=== PATIENT | female | born 1990 | race Caucasian/White ===

== ENCOUNTER 2022-05-15 20:57 | Observation (INO) | payer OTHER ==
--- NOTE | 2022-05-15 22:26 | RAD REPORT ---
EXAM DESCRIPTION: RAD - Chest Single View - 05/15/2022 10:19 pm CLINICAL HISTORY: SOB Chest pain. COMPARISON: No comparisons FINDINGS: Portable technique limits examination quality. Mild bilateral pulmonary opacities are present which may represent pulmonary edema or a viral infecti on. The heart is mildly prominent. No displaced fractures.
[2022-05-15 22:28] LABS: Absolute Lymphocytes (CBC) 1.9 K/uL (0.7-4.9); Hematocrit 39.2 % (36.0-45.0); Lymphocytes % 20.2 % (15.3-44.8); MCV 80.7 fL (80-100); MPV 7.9 fL (7.6-11.3); RBC Red Blood Cell Count 4.85 M/uL (3.86-4.86)
--- NOTE | 2022-05-15 22:28 | RAD REPORT ---
EXAM DESCRIPTION: CT - Head Brain Wo Cont - 05/15/2022 10:23 pm CLINICAL HISTORY: htn Headache, drowsiness, hypertension COMPARISON: No comparisons TECHNIQUE: All CT scans are performed using dose optimization technique as appropriate and may inclu de automated exposure control or mA/KV adjustment according to patient size. FINDINGS: No intracranial hemorrhage, hydrocephalus or extra-axial fluid collection.No areas of brai n edema or evidence of midline shift. The paranasal sinuses and mastoids are clear. The calvarium is intact. IMPRESSION: No acute intracranial abnormality.
[2022-05-15 22:29] LABS: Protime INR 1.04
[2022-05-15] MEDS ORDERED: NA CHLORIDE 0.9% 1,000 ML ONE (22:51)
[2022-05-15] MEDS ORDERED: NITROGLYCERIN 1 GM PKT TD ONE (22:51)
[2022-05-15] MEDS ORDERED: NITROGLYCERIN 0.4 MG/TAB SL ONE (22:51)
[2022-05-15 22:57] LABS: Magnesium 2.2 mg/dL (1.8-2.4); Troponin High Sensitivity 10.4 pg/mL (<58.9)
[2022-05-15] MEDS ORDERED: DIPHENHYDRAMINE 50 MG/ML VIAL ONE (22:59)
[2022-05-16] MEDS ORDERED: DOXAZOSIN 2 MG TAB ONE (00:17)
[2022-05-16] MEDS ORDERED: METOPROLOL TARTRATE 5 MG/5 ML INJ IV ONE (01:53)
[2022-05-16 01:59] LABS: Urine Blood 1+ (Negative); Urine Glucose Negative (Negative); Urine Protein Trace (Negative); Urine Specific Gravity 1.015 (1.005-1.030); Urine pH 5.5 (5.0-7.0)
[2022-05-16] MEDS ORDERED: METOPROLOL TAR 50 MG TAB ONE ×2 (02:01→07:45)
[2022-05-16] MEDS ORDERED: ASPIRIN 325 MG TAB ONE (02:01)
[2022-05-16 02:07] LABS: Urine Specific Gravity/Preg 1.015 (1.005-1.030)
[2022-05-16 02:33] LABS: Barbiturates NEGATIVE (NEGATIVE); Benzodiazepines NEGATIVE (NEGATIVE); Cocaine NEGATIVE (NEGATIVE); METHAMPHETAM NEGATIVE (NEGATIVE); Methadone NEGATIVE (NEGATIVE); Opiates NEGATIVE (NEGATIVE); Phencyclidine NEGATIVE (NEGATIVE); THC Cannibis NEGATIVE (NEGATIVE)
--- NOTE | 2022-05-16 03:17 | EDPHYS ---
Physician Documentation [facility] Name: Angeles Valencia Age: 31 yrs Sex: Female : 1990 Arrival Date: 05/15/2022 Time: 20:59 Bed 6 Private MD: ROSALES Physician Nimesh Boles HPI: 05/15 22:05 This 31 yrs old Female presents to ER via Ambulatory with complaints of High Blood cp Pressure. 22:05 The patient has elevated blood pressure and discovered this at home, with a home device.cp 22:05 Associated signs and symptoms: Pertinent positives: chest pain, headache, shortness of cp breath. Severity of symptoms: in the emergency department the blood pressure is unchanged. Patient reports history of htn. Has been off blood pressure medication for past 3 months. Has been on amlodipine in the past but had anaphylactic reaction. Reports allergic reaction to Lisinopril medication, diuretic blood pressure medication, anaphylactic reaction to clonidine and allergy to hydralazine. Patient reports beta cass medication caused psoriasis to worsen with pustules forming after taking medication over time. Historical: - Allergies: 21:32 PENICILLINS; hb 21:32 Bactrim; hb 21:32 Beta-Blockers (Beta-Adrenergic Blocking Agts); hb 21:32 amlodipine; hb 21:32 proparacaine; hb 21:32 IV Contrast; hb 21:32 HC2 Inhibitors; hb 21:32 Doxycycline; hb 21:32 Proton Pump Inhibitors; hb 21:32 Cipro; hb 21:32 Janumet; hb 21:32 metformin; hb 21:32 Hydrochlorothiazide; hb 21:32 Cyclosporine; hb 21:32 Celexa; hb 21:32 Cymbalta; hb 21:32 Geodon; hb 21:32 lithium carbonate; hb 21:32 Losartan; hb 21:32 Zofran; hb 21:32 Cosentyx; hb 21:32 Tremfya; hb 21:32 Morphine; hb 21:32 Fentanyl; hb 21:32 Breo Ellipta; hb 21:32 Latex, Natural Rubber; hb 21:32 spironolactone; hb 21:32 ALEJANDRO 28; hb 21:32 Gildess; hb - Immunization history:: Adult Immunizations up to date. - Social history:: Smoking status: Patient denies any tobacco usage or history of. ROS: 22:10 Constitutional: Negative for body aches, chills, fever, poor PO intake. cp 22:10 Eyes: Negative for injury, pain, redness, and discharge. cp 22:10 Cardiovascular: Positive for chest pain, palpitations. cp 22:10 Respiratory: Positive for shortness of breath, Negative for cough, wheezing. cp 22:10 Abdomen/GI: Negative for abdominal pain, vomiting, diarrhea, constipation. 22:10 Back: Negative for pain at rest, pain with movement. 22:10 : Negative for urinary symptoms. Exam: 22:05 ECG was reviewed by the Attending Physician. cp 22:12 Constitutional: The patient appears in no acute distress, alert, awake, cp non-diaphoretic, non-toxic, well developed, well nourished, obese, uncomfortable. 22:12 Head/Face: Normocephalic, atraumatic. cp 22:12 Eyes: Periorbital structures: appear normal, Pupils: equal, round, and reactive to light and accomodation, Extraocular movements: intact throughout, Conjunctiva: normal, no exudate, no injection, Sclera: no appreciated abnormality, Lids and lashes: appear normal, bilaterally. 22:12 ENT: External ear(s): are unremarkable, Nose: is normal, Mouth: Lips: moist, Oral mucosa: moist, Posterior pharynx: Airway: no evidence of obstruction, patent. 22:12 Neck: ROM/movement: is normal, is supple, without pain, no range of motions limitations, no nuchal rigidity. 22:12 Chest/axilla: Inspection: normal. 22:12 Cardiovascular: Rate: tachycardic, Rhythm: regular, Edema: is not appreciated, JVD: is not appreciated. 22:12 Respiratory: the patient does not display signs of respiratory distress, Respirations: normal, no use of accessory muscles, no retractions, labored breathing, is not present, Breath sounds: are clear throughout, no decreased breath sounds, no stridor, no wheezing. 22:12 Abdomen/GI: Inspection: obese Bowel sounds: active, all quadrants, Palpation: abdomen is soft and non-tender, in all quadrants. 22:12 Back: pain, is absent, ROM is normal. 22:12 Skin: consistent with psoriasis, on the left lower leg. 22:12 Neuro: Orientation: to person, place \T\ time. Mentation: is normal, Cerebellar function: is grossly normal, Motor: moves all fours, strength is normal, Sensation: is normal. 05/16 01:37 ECG was reviewed by the Attending Physician. Vital Signs: 05/15 21:31 BP 213 / 109; Pulse 129; Resp 20; Temp 98.3; Pulse Ox 97% on R/A; Weight 102.06 kg; hb Height 5 ft. 5 in. (165.10 cm); Pain 2/10; 22:57 BP 193 / 120; Pulse 120; Resp 21; Pulse Ox 99% on R/A; jb4 05/16 00:36 BP 180 / 108; Pulse 135; Resp 28; Pulse Ox 98% on R/A; jb4 01:30 BP 177 / 96; Pulse 150; Resp 18; Pulse Ox 98% on R/A; jb4 02:30 BP 138 / 89; Pulse 105; Resp 14; Pulse Ox 96% on R/A; jb4 03:30 BP 147 / 92; Pulse 98; Resp 16; Pulse Ox 96% on R/A; 4 05/15 21:31 Body Mass Index 37.44 (102.06 kg, 165.10 cm) hb 01:30 Provider notified of Heart rate, see MAR for orders. [facility] MDM: 05/15 21:53 Patient medically screened. [facility] 05/16 03:15 Data reviewed: vital signs, nurses notes, lab test result(s), EKG, radiologic studies, cp CT scan, plain films, I have discussed the patient's presentation/case with the attending Emergency Department Physician;. 03:15 Test interpretation: by ED physician or midlevel provider: ECG, plain radiologic cp studies. Response to treatment: the patient's symptoms have markedly improved after treatment. Physician consultation: Padilla Gupta was contacted at 03:10, regarding admission, to the telemetry unit. patient's condition, and will see patient in ED, shortly. 05/15 22:00 Order name: Basic Metabolic Panel; Complete Time: 23:00 05/15 23:00 Interpretation: Normal except: GLUC 114. 05/15 22:00 Order name: CBC with Diff; Complete Time: 23:00 05/16 02:49 Interpretation: Reviewed. 05/15 22:00 Order name: Magnesium; Complete Time: 23:00 05/15 22:00 Order name: NT PRO-BNP; Complete Time: 23:00 cp 05/16 02:50 Interpretation: NT PRO-BNP 27; Reviewed. cp 05/15 22:00 Order name: PT-INR; Complete Time: 23:00 cp 05/15 22:00 Order name: Troponin HS; Complete Time: 23:00 cp 05/16 02:49 Interpretation: Troponin HS 10.4; Reviewed. cp 05/16 01:16 Order name: UDS; Complete Time: 02:48 la1 05/16 02:49 Interpretation: Reviewed. cp 05/16 01:19 Order name: TSH cp 05/16 01:19 Order name: T3 Free cp 05/16 01:21 Order name: T4 Free la1 05/16 01:59 Order name: Urine Dipstick-Ancillary; Complete Time: 02:48 EDMS 05/16 02:48 Interpretation: Normal except: UBLD 1+; UPROT Trace; UESTR 1+. cp 05/16 02:01 Order name: Urine --Ancillary (enter results); Complete Time: 02:48 05/16 02:49 Interpretation: Reviewed. cp 05/16 03:11 Order name: Troponin HS cp 05/16 07:07 Order name: CBC with Automated Diff EDMS 05/15 22:00 Order name: XRAY Chest (1 view); Complete Time: 23:00 cp 05/15 22:02 Order name: CT Head Brain wo Cont; Complete Time: 23:00 cp 05/16 07:22 Order name: SARS RAPID eb 05/16 07:31 Order name: Comprehensive Metabolic Panel EDMS 05/16 07:31 Order name: Lipid Profile EDMS 05/16 07:31 Order name: Magnesium EDMS 05/16 10:18 Order name: SARS-COV-2 Antigen Rapid EDMS 05/16 14:17 Order name: Troponin High Sensitivity EDMS 05/15 22:00 Order name: EKG; Complete Time: 22:02 cp 05/15 22:00 Order name: Cardiac monitoring; Complete Time: 22:07 cp 05/15 22:00 Order name: EKG - Nurse/Tech; Complete Time: 22:07 cp 05/15 22:00 Order name: IV Saline Lock; Complete Time: 22:20 cp 05/15 22:00 Order name: Labs collected and sent; Complete Time: 22:20 cp 05/15 22:00 Order name: O2 Per Protocol; Complete Time: 22:07 cp 05/15 22:00 Order name: O2 Sat Monitoring; Complete Time: 22:07 cp 05/15 22:16 Order name: Urine Dipstick-Ancillary (obtain specimen); Complete Time: 02:05 cp 05/15 22:16 Order name: Urine Test (obtain specimen); Complete Time: 02:05 cp 05/16 01:20 Order name: EKG; Complete Time: 01:21 cp 05/16 01:20 Order name: EKG - Nurse/Tech; Complete Time: 01:39 cp EC/01 22:05 Rate is 109 beats/min. Rhythm is regular. AK interval is normal. QRS interval is cp normal. QT interval is normal. T waves are Inverted in leads III, aVR. Interpreted by me. Reviewed by me. 05/16 01:37 Rate is 140 beats/min. Rhythm is regular. AK interval is normal. QRS interval is cp normal. QT interval is normal. T waves are Inverted. Interpreted by me. Reviewed by me. Administered Medications: 05/15 22:45 Drug: NS 0.9% 1000 ml Route: IV; Rate: 1 bolus; Site: right antecubital; [facility] 05/16 00:00 Follow up: Response: No adverse reaction; IV Status: Completed infusion; IV Intake: jb4 1000ml 05/15 22:45 Drug: Nitro-Bid (nitroglycerin) Ointment 2 % 0.5 inches Route: Transdermal; Site: [facility] anterior chest wall; 22:45 Follow up: Response: Adverse reaction, Physician notified; see chart jb4 22:45 Drug: Nitroglycerin 0.4 mg Route: Sublingual; jb4 22:45 Follow up: Response: Adverse reaction, Physician notified; see chart jb4 22:50 Drug: Benadryl (diphenhydrAMINE) 50 mg Route: IVP; Site: right antecubital; jb4 23:15 Follow up: Response: No adverse reaction; Marked relief of symptoms jb4 23:52 Not Given (not availablee): Methyldopa 500 mg PO once 05/16 00:36 Drug: Doxazosin 4 mg Route: PO; 4 01:15 Follow up: Response: No adverse reaction; Marked relief of symptoms jb4 01:45 Drug: Lopressor (metoprolol) 5 mg Route: IVP; Site: right antecubital; jb4 02:15 Follow up: Response: No adverse reaction; Marked relief of symptoms jb4 02:04 Drug: Metoprolol TARTRATE 50 mg Route: PO; jb4 02:30 Follow up: Response: No adverse reaction; Marked relief of symptoms jb4 02:04 Drug: Aspirin 325 mg Route: PO; jb4 02:30 Follow up: Response: No adverse reaction jb4 Disposition Summary: 05/16/22 03:16 Hospitalization Ordered Hospitalization Status: Observation cp Provider: Jonah López cp Condition: Stable cp Problem: new cp Symptoms: have improved cp Bed/Room Type: Standard cp Location: [facility] ER HOLD(05/16/22 04:14) cg Room Assignment: ERHOLD-(05/16/22 04:14) cg Diagnosis - Chest pain, unspecified cp - Hypertensive urgency cp Forms: - Medication Reconciliation Form cp - SBAR form cp Signatures: Dispatcher [employer] EDNimesh Knight MD MD cha Page, Corey, PA PA cp Scarlet Donahue, RN RN Lupe Traylor RN RN Mitchell Mercado RN RN jb4 Corrections: (The following items were deleted from the chart) 05/15 21:38 21:32 PMHx: Hypothyroidism; hb hb 05/16 04:14 03:16 Telemetry/MedSurg (observation) cp cg 04:14 03:16 cp cg
--- NOTE | 2022-05-16 03:17 | ER ---
Nurse's Notes [facility] Name: Angeles Valencia Age: 31 yrs Sex: Female : 1990 Arrival Date: 05/15/2022 Time: 20:59 Bed 6 Private MD: Diagnosis: Chest pain, unspecified;Hypertensive urgency Presentation: 05/15 21:31 Chief complaint: Left sided chest tightness, SOB, and high home BP today. Hx of HTN but hb not medicated. Coronavirus screen: Client presents with at least one sign or symptom that may indicate coronavirus-19. Standard/surgical mask placed on the client. Ebola Screen: No symptoms or risks identified at this time. Risk Assessment: Do you want to hurt yourself or someone else? Patient reports no desire to harm self or others. Onset of symptoms was May 15, 2022. 21:31 Method Of Arrival: Ambulatory hb 21:31 Acuity: KATE 2 hb Historical: - Allergies: 21:32 PENICILLINS; hb 21:32 Bactrim; hb 21:32 Beta-Blockers (Beta-Adrenergic Blocking Agts); hb 21:32 amlodipine; hb 21:32 proparacaine; hb 21:32 IV Contrast; hb 21:32 HC2 Inhibitors; hb 21:32 Doxycycline; hb 21:32 Proton Pump Inhibitors; hb 21:32 Cipro; hb 21:32 Janumet; hb 21:32 metformin; hb 21:32 Hydrochlorothiazide; hb 21:32 Cyclosporine; hb 21:32 Celexa; hb 21:32 Cymbalta; hb 21:32 Geodon; hb 21:32 lithium carbonate; hb 21:32 Losartan; hb 21:32 Zofran; hb 21:32 Cosentyx; hb 21:32 Tremfya; hb 21:32 Morphine; hb 21:32 Fentanyl; hb 21:32 Breo Ellipta; hb 21:32 Latex, Natural Rubber; hb 21:32 spironolactone; hb 21:32 ALEJANDRO 28; hb 21:32 Gildess; hb - Immunization history:: Adult Immunizations up to date. - Social history:: Smoking status: Patient denies any tobacco usage or history of. Screenin:45 Abuse screen: Denies threats or abuse. Nutritional screening: No deficits noted. jb4 Tuberculosis screening: No symptoms or risk factors identified. Fall Risk None identified. Assessment: 21:45 General: Appears in no apparent distress. uncomfortable, Behavior is calm, cooperative, jb4 appropriate for age. Pain: Complains of pain in chest Pain does not radiate. Pain currently is 2 out of 10 on a pain scale. Neuro: Level of Consciousness is awake, alert, obeys commands, Oriented to person, place, time, situation. Cardiovascular: Patient's skin is warm and dry. Respiratory: Airway is patent Respiratory effort is even, unlabored, Respiratory pattern is regular, symmetrical, Breath sounds are clear bilaterally. GI: No signs and/or symptoms were reported involving the gastrointestinal system. : No signs and/or symptoms were reported regarding the genitourinary system. EENT: No signs and/or symptoms were reported regarding the EENT system. Derm: Skin is intact, Skin is pink, warm \\T\\ dry. Musculoskeletal: Circulation, motion, and sensation intact. Range of motion: intact in all extremities. 22:37 Reassessment: Pt reports having a history of Mitral valve prolapse, and voiced concern jb4 for taking Nitro. Provider notified, informed this nurse that nitro is safe to give and to still give 1L bolus of NS. Pt notified. 22:45 Reassessment: Pt given sublingual nitro and transdermal. Within approximately 30seconds jb4 pt reports that her mouth was burning and tingling but the transdermal had no adverse effect, immediatley after pt began to report severe headache, chest, abdomen, and body cramping. Pt spit out remaining oral nitro and transdermal was removed, provider notified and at the bedside. Received verbal order to give 50mg of Benadryl IV. 05/16 00:00 Reassessment: Patient appears in no apparent distress at this time. Patient and/or jb4 family updated on plan of care and expected duration. Pain level reassessed. Patient is alert, oriented x 3, equal unlabored respirations, skin warm/dry/pink. Patient states feeling better. Patient states symptoms have improved. 01:30 Reassessment: Patient appears in no apparent distress at this time. Patient and/or jb4 family updated on plan of care and expected duration. Pain level reassessed. Patient is alert, oriented x 3, equal unlabored respirations, skin warm/dry/pink. 01:40 Reassessment: Informed pt that provider would like to use Metoprolol to treat her jb4 tachycardia. Informed pt Metoprolol is a beta cass. Pt states " I have never had Metoprolol before, and the other incidents were years ago. I want to take it. 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 03:16 Reassessment: Patient appears in no apparent distress at this time. Patient and/or jb4 family updated on plan of care and expected duration. Pain level reassessed. Patient is alert, oriented x 3, equal unlabored respirations, skin warm/dry/pink. Pt is resting comfortably in bed with family at the bedside. reports feeling much better. Patient states feeling better. Patient states symptoms have improved. Vital Signs: 05/15 21:31 BP 213 / 109; Pulse 129; Resp 20; Temp 98.3; Pulse Ox 97% on R/A; Weight 102.06 kg; hb Height 5 ft. 5 in. (165.10 cm); Pain 2/10; 22:57 BP 193 / 120; Pulse 120; Resp 21; Pulse Ox 99% on R/A; jb4 05/16 00:36 BP 180 / 108; Pulse 135; Resp 28; Pulse Ox 98% on R/A; jb4 01:30 BP 177 / 96; Pulse 150; Resp 18; Pulse Ox 98% on R/A; jb4 02:30 BP 138 / 89; Pulse 105; Resp 14; Pulse Ox 96% on R/A; jb4 03:30 BP 147 / 92; Pulse 98; Resp 16; Pulse Ox 96% on R/A; jb4 05/15 21:31 Body Mass Index 37.44 (102.06 kg, 165.10 cm) hb 01:30 Provider notified of Heart rate, see MAR for orders. jb4 ED Course: 05/15 20:59 Patient arrived in ED. ja2 21:32 Triage completed. hb 21:41 Mitchell Mercado, RN is Primary Nurse. jb4 21:45 Patient has correct armband on for positive identification. Placed in gown. Bed in low jb4 position. Call light in reach. Side rails up X 1. Client placed on continuous cardiac and pulse oximetry monitoring. NIBP monitoring applied. it compliance manager on. 21:53 Nimesh Garcia PA is PHCP. cp 21:53 Nimesh Boles MD is Attending Physician. cp 22:00 Inserted saline lock: 18 gauge in right antecubital area, using aseptic technique. jb4 Blood collected. 22:20 Troponin HS Sent. jb4 22:20 NT PRO-BNP Sent. jb4 22:20 Magnesium Sent. jb4 22:20 CBC with Diff Sent. jb4 22:20 Basic Metabolic Panel Sent. jb4 22:21 XRAY Chest (1 view) In Process Unspecified. EDMS 22:24 CT Head Brain wo Cont In Process Unspecified. EDMS 05/16 03:12 Jonah López MD is Hospitalizing Provider. cp 03:15 No provider procedures requiring assistance completed. jb4 03:15 Patient admitted, IV remains in place. jb4 Administered Medications: 05/15 22:45 Drug: NS 0.9% 1000 ml Route: IV; Rate: 1 bolus; Site: right antecubital; jb4 05/16 00:00 Follow up: Response: No adverse reaction; IV Status: Completed infusion; IV Intake: jb4 1000ml 05/15 22:45 Drug: Nitro-Bid (nitroglycerin) Ointment 2 % 0.5 inches Route: Transdermal; Site: [facility] anterior chest wall; 22:45 Follow up: Response: Adverse reaction, Physician notified; see chart jb4 22:45 Drug: Nitroglycerin 0.4 mg Route: Sublingual; jb4 22:45 Follow up: Response: Adverse reaction, Physician notified; see chart jb4 22:50 Drug: Benadryl (diphenhydrAMINE) 50 mg Route: IVP; Site: right antecubital; jb4 23:15 Follow up: Response: No adverse reaction; Marked relief of symptoms jb4 23:52 Not Given (not availablee): Methyldopa 500 mg PO once 05/16 00:36 Drug: Doxazosin 4 mg Route: PO; jb4 01:15 Follow up: Response: No adverse reaction; Marked relief of symptoms jb4 01:45 Drug: Lopressor (metoprolol) 5 mg Route: IVP; Site: right antecubital; jb4 02:15 Follow up: Response: No adverse reaction; Marked relief of symptoms jb4 02:04 Drug: Metoprolol TARTRATE 50 mg Route: PO; jb4 02:30 Follow up: Response: No adverse reaction; Marked relief of symptoms jb4 02:04 Drug: Aspirin 325 mg Route: PO; jb4 02:30 Follow up: Response: No adverse reaction jb4 Medication: 03:15 VIS not applicable for this client. jb4 Intake: 00:00 IV: 1000ml; Total: 1000ml. jb4 Outcome: 03:16 Decision to Hospitalize by Provider. cp 03:30 Admitted to ER Hold. Please see [facility] for further documentation. jb4 03:30 Condition: stable 03:30 Discharge instructions given to patient, Instructed on the need for admit, Demonstrated understanding of instructions. 15:49 Patient left the ED. ll1 Signatures: Dispatcher [employer] EDMS Nimesh Garcia PA PA cp Lupe Traylor RN RN Mitchell Mercado RN RN jb4 Toribio Pop RN RN ll1 Anabel Serna Corrections: (The following items were deleted from the chart) 05/15 21:38 21:32 PMHx: Hypothyroidism; hb hb 22:57 22:37 Reassessment: Pt reports having a history of Mitral valve prolapse, and voiced jb4 concern for taking Nitro. Provider notified, informed this nurse that nitro is safe to give and to still give 1L bolus of NS. jb4 05/16 03:43 02:30 BP 182 / 92; Pulse 66bpm; Resp 16bpm; Pulse Ox 97% RA; jb4 4 03:43 03:30 BP 171 / 88; Pulse 68bpm; Resp 12bpm; Pulse Ox 95% RA; jb4 jb4 06:52 02:00 Reassessment: Informed pt that provider would like to use Metoprolol to treat her jb4 tachycardia. Informed pt Metoprolol is a beta cass. Pt states " I have never had Metoprolol before, and the other incidents were years ago. I want to take it. 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 jb4
[2022-05-16 03:36] LABS: T3 Free 3.16 pg/mL (2.18-3.98); Thyroid Stimulating Hormone 0.81 uIU/mL (0.360-3.740)
--- NOTE | 2022-05-16 03:41 | P.HP ---
Certification for Inpatient Patient admitted to: Observation With expected LOS: <2 Midnights Patient will require the following post-hospital care: None Practitioner: I am a practitioner with admitting privileges, knowledge of patient current condition, hospital course, and medical plan of care. Services: Services provided to patient in accordance with Admission requirements found in Title 42 Section 412.3 of the Code of Federal Regulations <Padilla Gupta - Last Filed: 05/16/22 03:35> Patient History Date of Service: 05/16/22 Primary Care Provider: [facility] Reason for admission: Hypertensive urgency, chest pain History of Present Illness: 31-year-old female with history of psoriasis/psoriatic arthritis, MVP, PCOS, hypertension presents emergency department for high blood pressure. She reports that she was taken off her amlodipine few weeks ago by her PCP she was having swelling of her tongue in her lower extremities and due to all of her allergies they were unable to select another medication to put her on she supposed to follow-up with a compound coating machine offbearer but not until later this month. Upon arrival to the emergency department patient's blood pressure was elevated around 213/109 heart rate was around 130 she was also having some chest pressure during her ED stay, she was eventually treated with metoprolol as she stated is an allergy but she reports that it causes worsening of her psoriasis. Currently treated for swelling to metoprolol currently heart rate 98 blood pressure 147/92 thyroid panel is pending patient does have history of hypothyroidism. ED provider wishes to admit under observation for hypertensive urgency, chest pain. - Past Medical/Surgical History -: PCOS -: Psoriasis/psoriatic arthritis -: Hypertension -: Hypothyroidism -: MVP -: Psychosocial/ Personal History: Patient lives at home with her and child - Family History Mother -: Hypertension, Diabetes Father Notes: psoriasis Sister -: Diabetes - Social History Smoking Status: Never smoker Alcohol use: No CD- Drugs: No Caffeine use: Yes Place of Residence: Home <Padilla Gupta - Last Filed: 05/16/22 03:35> Date of Service: 05/17/22 <Edward Jacobs - Last Filed: 05/17/22 07:45> Review of Systems 10-point ROS is otherwise unremarkable Respiratory: Shortness of Breath Cardiovascular: Chest Pain, Palpitations <Padilla Gupta - Last Filed: 05/16/22 03:35> Physical Examination - Physical Exam General: Alert, In no apparent distress, Oriented x3 HEENT: Atraumatic, PERRLA, Mucous membr. moist/pink, EOMI, Sclerae nonicteric Neck: Supple, 2+ carotid pulse no bruit, No LAD, Without JVD or thyroid abnormality Respiratory: Clear to auscultation bilaterally, Normal air movement Cardiovascular: Regular rate/rhythm, Normal S1 S2 Capillary refill: <2 Seconds Gastrointestinal: Normal bowel sounds, No tenderness Musculoskeletal: No tenderness Integumentary: No rashes Neurological: Normal speech, Normal strength at 5/5 x4 extr, Normal tone, Normal affect - Studies Laboratory Data (last 24 hrs) 05/15/22 22:10: PT 11.5, INR 1.04 05/15/22 22:10: WBC 9.50, Hgb 13.2, Hct 39.2, Plt Count 294 05/15/22 22:10: Sodium 136, Potassium 4.0, BUN 7, Creatinine 0.64, Glucose 114 H, Magnesium 2.2 <Padilla Gupta - Last Filed: 05/16/22 03:35> Assessment and Plan - Plan Assessment: Chest pain Hypertensive urgency Hx of MVP Hypothyroidism PCOS Psoriasis/Psoriatic arthritis Plan: Chest pain: Monitor on telemetry, trend troponins, cardiology consult in place and echocardiogram ordered. Patient with history of mitral valve prolapse was experiencing tachycardia and hypertension as well during her ED stay. Initiated therapy with beta-cass, aspirin patient with multiple drug allergies/adverse reactions. Appreciate further input from cardiology. Hypertensive urgency: Continue metoprolol, cardiology consult in place and echocardiogram ordered. Patient has been on 14th of blood pressure medications reportedly with varying adverse reactions and allergic reactions, she reports that metoprolol can make her psoriasis worse this was the medication that was given to her in the emergency department which seems to work at this time. We will continue his medication for the time being await further evaluation from cardiology. Hx of MVP: Continue as above, echocardiogram ordered. Hypothyroidism: Thyroid panel ordered and pending. Continue home medications once verified. PCOS: Stable continue home meds Psoriasis/Psoriatic arthritis:Stable continue home meds DVT PPX: lovenox Code status:Full Discharge Plan: Home Plan to discharge in: 24 Hours - Advance Directives Does patient have a Living Will: No Does patient have a Durable POA for Healthcare: No - Code Status/Comfort Care Code Status Assessed: Yes (Full code) Critical Care: No Time Spent Managing Pts Care (In Minutes): 55 <Padilla Gupta - Last Filed: 05/16/22 03:35> Physician Review: Patient Assessed, Agree with Above Assessment and Plan <Edward Jacobs - Last Filed: 05/17/22 07:45>
[2022-05-16] MEDS ORDERED: ACETAMINOPHEN 500 MG TAB PO PRN (05:48)
[2022-05-16] MEDS ORDERED: ONDANSETRON 4 MG/2 ML VIAL IV PRN (05:48)
[2022-05-16 05:53] VITALS: BMI 37.4
[2022-05-16 06:52] LABS: Absolute Lymphocytes (CBC) 2.6 K/uL (0.7-4.9); Lymphocytes % 30.6 % (15.3-44.8); MCV 80.7 fL (80-100); MPV 7.8 fL (7.6-11.3); RBC Red Blood Cell Count 4.46 M/uL (3.86-4.86)
--- NOTE | 2022-05-16 07:18 | EKG ---
Test Date: 2022-05-16 Test Time: 01:31:47 Measuring Clerk: CORRINA MEASUREMENT RESULTS: Intervals: Rate: 140 FL: 124 QRSD: 88 QT: 302 QTc: 461 [place]: P: 62 FL: 124 QRS: 46 T: 20 INTERPRETIVE STATEMENTS: Sinus tachycardia Cannot rule out Anterior infarct, age undetermined Abnormal ECG Compared to ECG 05/15/2022 21:59:06 Myocardial infarct finding now present ST (T wave) deviation no longer present Electronically Signed On 05-16-22 07:18:08 CDT by Mono Marcelo
--- NOTE | 2022-05-16 07:19 | EKG ---
Test Date: 2022-05-15 Test Time: 21:59:06 [employer] Teacher: CORRINA MEASUREMENT RESULTS: Intervals: Rate: 109 VT: 150 QRSD: 98 QT: 338 QTc: 455 [place]: P: 34 VT: 150 QRS: 29 T: 19 INTERPRETIVE STATEMENTS: Sinus tachycardia Nonspecific ST abnormality Abnormal ECG No previous ECG available for comparison Electronically Signed On 05-16-22 07:18:21 CDT by Mono Marcelo
[2022-05-16 07:31] LABS: Albumin 3.2 g/dL (3.4-5.0); Bilirubin Total 0.3 mg/dL (0.2-1.0); Magnesium 2.2 mg/dL (1.8-2.4); Potassium 3.9 mmol/L (3.5-5.1); Protein, Total 7.5 g/dL (6.4-8.2)
[2022-05-16] MEDS ORDERED: ENOXAPARIN 40 MG/0.4 ML SQ ONE (07:45)
[2022-05-16] MEDS ORDERED: ASPIRIN 81 MG CHEWABLE TABLET ONE (07:45)
[2022-05-16] MEDS ORDERED: METOPROLOL TAR 50 MG TAB PO SCH (09:00)
[2022-05-16] MEDS ORDERED: ENOXAPARIN 40 MG/0.4 ML SQ SCH (09:00)
[2022-05-16] MEDS ORDERED: ASPIRIN EC 81 MG TAB PO SCH (09:00)
[2022-05-16 10:18] LABS: SARS-CoV-2 Antigen Rapid Res Negative (Negative)
--- NOTE | 2022-05-16 11:36 | CON ---
Date of Consultation: 05/16/2022 Admitted on 05/16/[address] Jacobs's service. Reason For Consultation: Hypertensive crisis. History Of Present Illness: Ms. Valencia is 31, has a history of PCOS, mitral valve prolapse, hypert ension, psoriasis, continued chest pressure, atypical chest pain. Blood pressure is 213/109, blood p ressure now is . Vital signs are stable, in sinus rhythm and no complaint. Denied any barbara sea, vomiting, diaphoresis, PND, orthopnea, pedal edema, palpitations, syncope. CT of her head is ne gative. EKG is unremarkable. The rest of her blood work is unremarkable. Chest x-ray showed possib le infection versus edema. Echocardiogram is pending. Review of Systems: Negative. Social History: Negative. Family History: Noncontributory. Medications At Home: Detailed by Dr. Jacobs. Allergies: SHE IS ALLERGIC TO MANY MEDICATIONS INCLUDING PENICILLIN, SULFA, IODINE, BETA BLOCKERS, N ORVASC, CIPRO, JANUMET, CYMBALTA, CELEXA, METFORMIN, PROTON PUMP INHIBITORS, HYDROCHLOROTHIAZIDE, AND INHALERS. Physical Examination: General: Ms. Valencia is pleasant, no acute distress. Vital Signs: Stable, afebrile, sinus rhythm HEENT: Negative. Chest: Clear to auscultation and percussion. Cardiac: Revealed a regular rhythm and rate. No murmurs, gallops, or rubs. Extremities: Revealed no edema. Diagnostic Data: As stated earlier. Impression And Plan: Mitral valve prolapse, hypertension with severe chest pain and blood pressure. I think her chest pain is related to her mitral valve prolapse and severe hypertension. She present s in a very difficult situation considering her many allergies to almost every classic hypertension d rugs. I discussed the case with Dr. Jacobs. I think certainly this is diastolic, hydralazine or doxa zosin or clonidine may be reasonable. I will leave that up to him. Echocardiogram is pending. We w ill see what that shows. GOYO/MODL Voice ID: [id number] Report ID: [id number]
--- NOTE | 2022-05-16 14:20 | ECHO ---
HEIGHT: 5 ft 5 in WEIGHT: 225 lb 0 oz DATE OF STUDY: 05/16/[address]: Padilla Gupta NP 2-DIMENSIONAL: YES M.MODE: YES DOPPLER: YES COLOR FLOW: YES TDS: YES PORTABLE: YES DEFINITY: NO BUBBLE STUDY: NO DIAGNOSIS: CHEST PAIN/HYPERTENSION EMERGENCY/ SINUS TACHYCARDIA CARDIAC HISTORY: CATHERIZATION: SURGERY: PROSTHETIC VALVE: PACEMAKER: MEASUREMENTS (cm) DIASTOLIC (NORMALS) SYSTOLIC (NORMALS) IVSd 1.2 (0.6-1.2) LA Diam 3.3 (1.9-4.0) LVEF 57% LVIDd 4.7 (3.5-5.7) LVIDs 3.3 (2.0-3.5) %FS 30% LVPWd 1.3 (0.6-1.2) Ao Diam 2.6 (2.0-3.7) 2 DIMENSIONAL ASSESSMENT: RIGHT ATRIUM: NORMAL LEFT ATRIUM: NORMAL RIGHT VENTRICLE: NORMAL LEFT VENTRICLE: NORMAL TRICUSPID VALVE: NORMAL MITRAL VALVE: MILD MITRAL REGURGITATION PULMONIC VALVE: NORMAL AORTIC VALVE: NORMAL PERICARDIAL EFFUSION: NONE AORTIC ROOT: NORMAL LEFT VENTRICULAR WALL MOTION: NORMAL. DOPPLER/COLOR FLOW: MILD MITRAL REGURGITATION. COMMENTS: NORMAL LEFT VENTRICULAR EJECTION FRACTION 55-60%. NORMAL WALL MOTION. MILD MITRAL REGURGITATION. TECHNOLOGIST: WADE JONES
--- NOTE | 2022-05-16 14:48 | P.DS ---
Admission Date: 05/16/22 Discharge Date: 05/16/22 Primary Care Provider: [facility] Disposition: ROUTINE DISCHARGE Discharge Condition: GOOD Reason for Admission: Hypertensive urgency, chest pain Consultations: 1. Cardiology Hospital Course: DIAGNOSES: # Hypertensive Urgency # Polycystic Ovarian Cystic Syndrome # Psoriasis complicated by Psoriatic Arthritis # Mitral Valve Prolapse # Hypothyroidism HOSPITAL COURSE: Ms. Angeles Valencia is a 31 year old female with a past medical history significant for hypertension, polycystic ovarian cystic syndrome, psoriasis complicated by psoriatic arthritis, and hypothyroidism who was [facility] 05[facility]16/2022 for hypertension. Upon presentation, her blood pressure was elevated to 213/109 and she was tachycardic. She was admitted to the Medicine service for further evaluation. Cardiology was consulted and she was evaluated by Dr. Marcelo. He recommended that she be started on metoprolol, and she had significant improvement in her blood pressures. A CT head revealed, "no acute intracranial abnormality." Her transthoracic echocardiogram was performed, which revealed, "normal left ventricular ejection fraction 55-60%. normal wall motion. mild mitral regurgitation." Dr. Marcelo has cleared her for discharge home with metoprolol and a outpatient Cardiology follow-up. On 05/16/2022, she was seen on rounds and deemed medically stable for discharge. She was discharged with instructions to schedule follow-up appointments with her PCP in 3-5 days and with Cardiology (Dr. Marcelo) in 5-7 days. She was provided prescriptions for metoprolol. She was given the opportunity to ask questions and reported no further questions. Furthermore, all questions were answered to the best of my ability. Today, I personally spent 25 minutes on her case, of which greater than 50% of the time was spent in patient education, counseling, and coordination of care as described above. Vital Signs/Physical Exam: Temp Pulse Resp BP Pulse Ox 97.7 F 95 H 17 152/90 H 98 05/16/22 12:00 05/16/22 12:00 05/16/22 12:00 05/16/22 12:00 05/16/22 12:00 General: Alert, In no apparent distress, Oriented x3 HEENT: Atraumatic, PERRLA, Mucous membr. moist/pink, EOMI, Sclerae nonicteric Neck: Supple, JVD not distended Respiratory: Clear to auscultation bilaterally, Normal air movement Cardiovascular: No edema, Regular rate/rhythm, Normal S1 S2, No gallops, No rubs, No murmurs Gastrointestinal: Normal bowel sounds, Soft and benign, Non-distended, No tenderness, No rebound, No guarding Musculoskeletal: No clubbing Integumentary: No rashes Neurological: Normal speech, Cranial nerves 3-12 intact, Normal affect Laboratory Data at Discharge: WBC 8.50 K/uL (4.3-10.9) 05/16/22 06:40 Hgb 12.3 g/dL (12.0-15.0) 05/16/22 06:40 Hct 36.0 % (36.0-45.0) 05/16/22 06:40 Plt Count 271 K/uL (152-406) 05/16/22 06:40 PT 11.5 SECONDS (9.5-12.5) 05/15/22 22:10 INR 1.04 05/15/22 22:10 Sodium 140 mmol/L (136-145) 05/16/22 06:40 Potassium 3.9 mmol/L (3.5-5.1) 05/16/22 06:40 BUN 10 mg/dL (7-18) 05/16/22 06:40 Creatinine 0.56 mg/dL (0.55-1.3) 05/16/22 06:40 Glucose 108 mg/dL (74-106) H 05/16/22 06:40 Magnesium 2.2 mg/dL (1.8-2.4) 05/16/22 06:40 Total Bilirubin 0.3 mg/dL (0.2-1.0) 05/16/22 06:40 AST 18 U/L (15-37) 05/16/22 06:40 ALT 16 U/L (12-78) 05/16/22 06:40 Alkaline Phosphatase 82 U/L (45-117) 05/16/22 06:40 Triglycerides 202 mg/dL (<150) H 05/16/22 06:40 Cholesterol 183 mg/dL (<200) 05/16/22 06:40 HDL Cholesterol 40 mg/dL (40-60) 05/16/22 06:40 Cholesterol/HDL Ratio 4.58 05/16/22 06:40 Home Medications: Metoprolol Tartrate [Lopressor*] 50 mg PO BID #60 tab 05/16/22 New Medications: Metoprolol Tartrate [Lopressor*] 50 mg PO BID #60 tab Physician Discharge Instructions: 1. Please schedule a follow-up with your PCP ([facility]) in 3-5 days 2. Please schedule a follow-up with Cardiology (Dr. Marcelo) in 5-7 days - Please check your blood pressure twice per day and leave a diary to bring to this appointment Diet: Low sodium Activity: Ad juan carlos Followup: NONE,NONE [Primary Care Provider] - Mono Marcelo MD [ACTIVE - CAN ADMIT] - Time spent managing pt's care (in minutes): 25
[2022-05-16 16:44] VITALS: TEMP 98.3
[2022-05-16 16:54] VITALS: O2SAT 96
[2022-05-16 16:56] VITALS: BP 147/92
== END 2022-05-16 15:41 | disposition home or self-care (01) ==
LOC: ER 20:57 → ERHOLD 05-16 03:29
PROVIDERS: ADMIT Internal Medicine; ATTEND Internal Medicine
DX: I10 Essential (primary) hypertension (principal); R07.9 Chest pain, unspecified; R00.0 Tachycardia, unspecified; L40.50 Arthropathic psoriasis, unspecified; I34.1 Nonrheumatic mitral (valve) prolapse; E28.2 Polycystic ovarian syndrome; E03.9 Hypothyroidism, unspecified; Z20.822 Contact with and (suspected) exposure to COVID-19
CPT/HCPCS: 96361; 93005 ×2; 93306; 85025 ×2; 80048; 36415 ×2; 83735 ×2; 81025; 85610; 80061; 84443; 81003; 84484 ×3; 84481; 84439; 80053; 83880; 80307; 70450; 71045; 96375; 96374; 99285; 87811; J1200; J7030; G0378 ×2; J1650